=== PATIENT | female | born 1960 ===

== ENCOUNTER 2017-01-28 00:46 | Observation (INO) ==
[2017-01-28] MEDS ORDERED: ONDANSETRON 4 MG/2 ML VIAL IV STA (02:10)
[2017-01-28] MEDS ORDERED: HYDROmorphone 2 MG/1 ML VIAL IV STA (02:10)
--- NOTE | 2017-01-28 02:10 | Emergency Department Note ---
Dave Bravo Hilary, am scribing for, and in the presence of, Ana Mccrary DO 02: 04. IHermann Debra, DO, personally performed the services described in this documentation, ascribed by Jacquelin Acosta in my presence, and it is both accurate and complete . Arrival - Arrival Chief Complaint: Non-Specific Stated Complaint: pain in right back and arm , hand numbness ED Nursing Triage Note: patient to triage with c/o right arm pain and right upper back pain with tingling to right arm that started this evening. patient states she thinks it is indigestion because she ate pizza earlier. denies N/V and SOB. ekg done in triage r/t risk factors and s/s. Mode of Arrival: Ambulatory Limitations: No Limitations Source: Patient, RN Notes Reviewed Time Seen by Provider: 01/28/17 01:39 - History of Present Illness HPI Narrative: Pt is a 56 y/o female presenting to the ED with a c/o right upper back pain that radiates down her arm which onset this evening. Patients states that she "slept wrong" on it last night and believes that she is having indigestion from the pizza she ate today. She reports that it hurts when she breaths deeply. No other complaints or problems stated in the ED. Onset (ago): hour(s) Date of Last Menstrual Period: menopause Allergies/Adverse Reactions: Allergies Allergy/AdvReac Type Severity Reaction Status Date / Time No Known Allergies Allergy Unverified 01/28/17 00:57 Home Medications: Home Medications Medication Instructions Recorded Confirmed Type Unable To Obtain [Unable to Obtain] 01/28/17 01/28/17 History Review of System - Review of System 12 point system: reviewed and no additional remarkable complaints except as stated - Review of System Constitutional: Absent: fever Cardiovascular: Present: chest pain (right side), dyspnea on exertion Gastrointestinal: Absent: abdominal pain, nausea, vomiting Musculoskeletal: Present: arm pain (rt arm pain/tingling), back pain Medical,Surgical,& Family Hx - Medical History Cardio: History of: Hypertension Gastrointestinal: History of: GERD - Social History Smoking Status: Never smoker Frequency of Alcohol Use: None Type of Drug Use: None Exam Vital Signs: Vital Signs Temperature 97.9 F 01/28/17 00:49 Pulse Rate 77 01/28/17 00:49 Respiratory Rate 20 01/28/17 00:49 Blood Pressure 127/79 01/28/17 00:49 O2 Sat by Pulse Oximetry 97 01/28/17 00:49 - General General appearance: alert, in no apparent distress - Head Head exam: Present: atraumatic, normocephalic - Eye Eye exam: Present: normal appearance, PERRL, EOMI - ENT ENT exam: Present: mucous membranes moist, TM's normal bilaterally. Absent: mucous membranes dry - Neck Neck exam: Present: full ROM, trachea midline. Absent: tenderness - Chest Chest inspection: Present: symmetric chest wall rise. Absent: tenderness - Respiratory Respiratory exam: Present: normal lung sounds bilaterally. Absent: respiratory distress - Cardiovascular Cardiovascular exam: Present: regular rate, normal rhythm, normal heart sounds. Absent: murmur, rubs, gallop - Abdominal Exam Abdominal exam: Present: soft. Absent: distention, tenderness - Extremities Exam Extremities exam: Present: full ROM, tenderness (Rt arm pain). Absent: pedal edema, calf tenderness - Back Exam Back exam: Present: full ROM, tenderness (right back tenderness) - Neurological Exam Neurological exam: Present: alert, oriented X3, CN II-XII intact. Absent: motor sensory deficit - Psychiatric Psychiatric exam: Present: normal affect, normal mood - Skin Skin exam: Present: warm, dry, intact, normal color. Absent: rash Results - Labs CBC & BMP: 01/28/17 01:56 01/28/17 01:56 Lab Results: I have reviewed the patients labs Labs: Laboratory Tests 01/28/17 01:56 WBC 8.4 RBC 4.80 Hgb 13.1 Hct 39.6 MCV 82.5 L - EKG EKG results: interpreted by ERMD - Impressions nonspecific st changes - Diagnostic Findings Procedure: Chest x-ray: image reviewed by me (neg chest)
[2017-01-28 02:26] LABS: Basophils % 0.2 % (0.0-0.8); Eosinophils % 0.1 % (0.00-10.9); Hematocrit 39.6 VOL% (35.7-47.0); Hemoglobin 13.1 GM/DL (12.0-16.0); Immature Granulocytes % 0.4 %; Immature Granulocytes Absolute 0.03 #; Lymphocytes # 2.8 10*3/uL (1.4-4.0); Lymphocytes % 33.5 % (21.3-54.2); Mean Corpuscular HGB Conc 33.1 GM/DL (32-36); Mean Corpuscular Hemoglobin 27 PG (27-34); Mean Corpuscular Volume 82.5 FL (87-102); Mean Platelet Volume 10.3 FL (9.6-12.0); Monocytes # 0.8 10*3/uL (0.11-0.8); Monocytes % 9.4 % (1.7-12.7); Neutrophils # 4.7 10*3/uL (1.4-7.4); Neutrophils % 56.4 % (38.7-73.9); Platelet Count 351 T/CUMM (130-400); White Blood Count 8.4 T/CUMM (4-12)
[2017-01-28 02:40] LABS: Alanine Aminotransferase 20 U/L (13-56); Albumin 4.1 G/DL (3.4-5.0); Alkaline Phosphatase 91 U/L (45-117); Aspartate Amino Transferase 15 U/L (0-37); Blood Urea Nitrogen 15 MG/DL (7-18); Calcium 9.3 MG/DL (8.5-10.1); Glucose 121 MG/DL (74-106); Osmolality,Calculated 282.3 MOS/KG (273-304); Potassium 4.4 MMOL/L (3.5-5.1); Sodium 141 MMOL/L (136-145); Total Protein 7.7 G/DL (6.4-8.3)
[2017-01-28] MEDS ORDERED: ONDANSETRON 4 MG/2 ML VIAL ONE ×2 (02:41→11:33)
[2017-01-28] MEDS ORDERED: HYDROmorphone 2 MG/1 ML VIAL ONE (02:42)
[2017-01-28 02:45] LABS: Troponin I Only 0.054 NG/ML (0.00-0.045)
--- NOTE | 2017-01-28 03:49 | Hospitalist History & Physical ---
Assessment and Plan (1) Atypical chest pain Status: Acute Current Visit: Yes (2) Hypertension Status: Acute Current Visit: Yes (3) History of esophageal reflux Status: Acute Assessment and plan: Our plan for this patient will be admitting her to telemetry. We will also consult cardiology and draw serial cardiac enzymes. Continue home meds as appropriate and provide DVT in GI prophylaxis. Current Visit: Yes History of Present Illness Chief complaint: Chest pain History of present illness: Ms. Real is a 56 year old female with past medical history significant for hypertension and reflux who was in her normal state of health for the past couple days. Patient says that she slept wrong Tuesday night and woke up with a cramp in her neck. It never went away. She started developing a pain on the right side of her chest that was a sore sensation that radiated down her right arm and to her back. She could really relate a history of shortness of breath with it but did relate that the pain increases when she breathes. She denied nausea and vomiting and shortness of. Patient had a mild bump in her troponins and I was consulted to admit her to the emergency room. Home Medications Medication Instructions Recorded Confirmed Type Unable To Obtain [Unable to Obtain] 01/28/17 01/28/17 History Allergies Allergy/AdvReac Type Severity Reaction Status Date / Time No Known Allergies Allergy Unverified 01/28/17 00:57 Medical,Surgical,& Family Hx - Medical History Cardio: History of: Hypertension Gastrointestinal: History of: GERD - Surgical History HEENT Surgeries: Surgical HX of: Tonsilectomy & Adenoidectomy - Family History Family History: Reports;: Family Cancer, Family Heart Disease - Social History Smoking Status: Never smoker Frequency of Alcohol Use: None Type of Drug Use: None 12 point system: reviewed and no additional remarkable complaints except as stated Exam - Constitutional Vitals: Period Temp Pulse Resp BP Sys/Pham Pulse Ox Last 24 Hr 97.9 F-97.9 F 77-77 20-20 127-127/79-79 97 - General General appearance: alert, in no apparent distress - Head Head exam: Present: atraumatic, normocephalic - Eye Eye exam: Present: normal appearance, PERRL, EOMI - ENT ENT exam: Present: mucous membranes moist, TM's normal bilaterally. - Neck Neck exam: Present: full ROM, trachea midline. - Chest Chest inspection: Present: symmetric chest wall rise. - Respiratory Respiratory exam: Present: normal lung sounds bilaterally. - Cardiovascular Cardiovascular exam: Present: regular rate, normal rhythm, normal heart sounds - Abdominal Exam Abdominal exam: Present: soft. Absent: distention, tenderness - Extremities Exam Extremities exam: Present: full ROM, tenderness - Back Exam Back exam: Present: full ROM, tenderness (right back tenderness) - Neurological Exam Neurological exam: Present: alert, oriented X3, CN II-XII intact. - Psychiatric Psychiatric exam: Present: normal affect, normal mood - Skin Skin exam: Present: warm, dry, intact, normal color. Absent: rash Results - Labs CBC & BMP: 01/28/17 01:56 01/28/17 01:56
[2017-01-28] MEDS ORDERED: ONDANSETRON 4 MG/2 ML VIAL IV PRN (03:55)
[2017-01-28] MEDS ORDERED: ENOXAPARIN 40 MG/0.4 ML SYRINGE SUBCUT SCH (04:00)
[2017-01-28 04:29] LABS: Risk Ratio 2.63; VLDL CHOLESTEROL 30.2 MG/DL
[2017-01-28] MEDS ORDERED: ASPIRIN 325 MG TABLET ONE ×2 (05:20→11:33)
[2017-01-28] MEDS ORDERED: NITROGLYCERIN 2% OINT 1 INCH/GM PACK TOP ONE ×2 (05:20→11:33)
[2017-01-28] MEDS ORDERED: ENOXAPARIN 40 MG/0.4 ML SYRINGE ONE (05:20)
[2017-01-28] MEDS ORDERED: ASPIRIN EC 325 MG TABLET PO STA (05:34)
--- NOTE | 2017-01-28 06:54 | EKG Report ---
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
--- NOTE | 2017-01-28 06:55 | EKG Report ---
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
--- NOTE | 2017-01-28 07:02 | XRay Report ---
XR chest 1V portable Indication: Shortness of breath Comparison: None available Findings: The heart and mediastinum are normal in size and configuration. The pulmonary vascularity is normal in caliber. No lung infiltrates, effusions, pneumothorax or other abnormality is demonstrated. Impression: Normal chest x-ray PROCEDURE INTERPRETED AT [facility] [place] DEPARTMENT OF RADIOLOGY Final Report Signed by: Dr. Levar Patton
--- NOTE | 2017-01-28 08:23 | Ultrasound Report ---
Referring Physician: Karthikeyan Jhaveri MD Exam: US gallbladder Date: January 28, 2017 Reason: Right upper quadrant abdominal pain Comparison: None Technique: Grayscale ultrasound images of the abdomen were obtained. Ultrasound images were captured and stored. Findings: The liver measures 18.6 cm in length. There is mild diffuse increased echogenicity of the liver parenchyma, suggesting mild hepatic steatosis. No suspicious hepatic lesion is identified. No gallstones are seen. No abnormal gallbladder wall thickening or pericholecystic fluid is identified. The common bile duct is normal in size, measuring 0.4 cm in diameter. The visualized pancreas is unremarkable, but it is partially obscured by bowel gas. The right kidney measures 10.4 x 5.2 x 4.5 cm. No right hydronephrosis or suspicious renal lesion is identified. The visualized IVC appears patent. No ascites is seen. Impression: 1. There is no sonographic evidence of cholelithiasis or acute cholecystitis. 2. Mild hepatic steatosis. PROCEDURE INTERPRETED AT [facility] DEPARTMENT OF RADIOLOGY Final Report Signed by: Dr. Celia Medeiros
[2017-01-28] MEDS ORDERED: ASPIRIN EC 325 MG TABLET PO SCH (09:00)
--- NOTE | 2017-01-28 10:59 | Cardiology Consult Note ---
<Sujey Rios E - Last Filed: 01/28/17 11:02> Assessment and Plan - Time spent with patient Time spent with patient: Greater than 30 minutes (1) Neck pain on right side Status: Acute Assessment and plan: SEE PLAN OF CARE LISTED BELOW Current Visit: Yes (2) Shoulder pain, right Status: Acute Assessment and plan: SEE PLAN OF CARE LISTED BELOW Current Visit: Yes (3) Morbid obesity Status: Chronic Assessment and plan: SEE PLAN OF CARE LISTED BELOW Current Visit: Yes (4) Sleep disorder Status: Chronic Assessment and plan: SEE PLAN OF CARE LISTED BELOW Current Visit: Yes (5) Hypertension Status: Chronic Assessment and plan: SEE PLAN OF CARE LISTED BELOW Current Visit: Yes History of Present Illness - Data of Consult Patient: new to practice Consult date: 01/28/17 Requesting Physician: Jermain Presley - Consult Narrative Reason for consult: right neck pain, shoulder pain. 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 Ms. Real is a 56 year old female without a prior cardiac history. Risk factors include; hypertension, obesity and sedentary lifestyle. Suspect ANNE. Patient presented to the ER of [facility] during the night due to severe, excruiating right neck, shoulder pain. Tuesday night she feels as if she slept "wrong" and woke with a "bad cramp" in her right neck. This has caused significant pain and worse when attempting to turn her head. Last night, it involved her right shoulder and her fingers were numb. Moving her right shoulder above her head improves the discomfort. She has an exquisitely tight right sternocleomastoid muscle. Cardiology was consulted to rule out a cardiac source as her troponin was initially 0.03. The enzymes have remained negative. EKG unremarkable. She denies chest pain, heaviness or tightness. She does not exercise routinely and acknowledges she has moderate GAYLE. She acknowledges she snores loudly, holds her breathe while sleeping. Mallampati Airway Class III with neck circumference greater than 44cm. She will consider outpatient sleep study in her future. Patient is NPO for stress testing this morning. Should she receive favorable results from stress testing, I would certainly treat her neck and shoulder pain accordingly. Recommend: Neurontine 100mg orally TID for one week. Tramadol 50mg orally BID for one week. Acetaminophen 500mg orally BID for one week. Will defer to attending for these prescriptions. I did order right shoulder xray and c-spine to evaluate this pain. Will await results of stress testing and advise accordingly. ASSESSMENT/PLAN: 1. RIGHT NECK/SHOULDER PAIN - see plan of care listed above. 2. HYPERTENSION - Continue current treatment 3. SUSPECTED SLEEP APNEA - will discuss with her PCP 4. MORBID OBESITY - the merits of weight loss was thoroughly discussed for greater than 5 minutes CC: - Home Medications and Allergies Home Medications: Home Medications Medication Instructions Recorded Confirmed Type Unable To Obtain [Unable to Obtain] 01/28/17 01/28/17 History Allergies/Adverse Reactions: Allergies Allergy/AdvReac Type Severity Reaction Status Date / Time No Known Allergies Allergy Unverified 01/28/17 00:57 - Constitutional Constitutional: Absent: anorexia, fatigue - EENT Nose, mouth and throat: Absent: dysphagia, epistaxis - Cardiovascular Cardiovascular: Present: dyspnea on exertion, radiating jaw, neck or arm pain. Absent: chest pain at rest, chest pain with activity, edema, lightheadedness, palpitations - Respiratory Respiratory: Present: dyspnea on exertion, snoring - Gastrointestinal Gastrointestinal: Absent: abdominal pain, bloating, dysphagia - Genitourinary Genitourinary: Absent: dysuria, hematuria - Musculoskeletal Musculoskeletal: Absent: back pain, joint swelling - Neurological Neurological: Absent: abnormal gait, abnormal speech - Psychiatric Psychiatric: Absent: anxiety, auditory hallucinations - Endocrine Endocrine: Absent: cold intolerance, fatigue - Hematologic/Lymphatic Hematologic/Lymphatic: Absent: easy bleeding, easy bruising, lymphadenopathy Medical,Surgical,& Family Hx - Medical History Cardio: History of: Hypertension No history of: CAD, [place] Gastrointestinal: History of: GERD - Surgical History HEENT Surgeries: Surgical HX of: Tonsilectomy & Adenoidectomy - Family History Family History: Reports;: Family Cancer, Family Heart Disease - Social History Smoking Status: Never smoker Have you smoked in the last 12 months: No Frequency of Alcohol Use: None Type of Drug Use: None Functional capacity: independent ambulation Physical Examination Vital Signs Temp Pulse Resp BP Pulse Ox 97.9 F 77 20 127/79 97 01/28/17 00:49 01/28/17 00:49 01/28/17 00:49 01/28/17 00:49 01/28/17 00:49 General: Present: Appears Well, No Apparent Distress HEENT: Present: PERRL, Normocephaly Neck: Present: Supple Neck, No JVD/HJR (Difficult to assess due to habitus), Other (limited ROM ). Absent: No Masses, Bruit Cardiac: Present: Regular Rate, Regular Rhythm, No Murmur Lungs: Present: Clear Ascult./Percussion. Absent: Wheezes, Oxygen Neuro: Present: Cranial Nerve 2-12 Intact, Tingling (right fingers) Abdomen: Present: Soft, Active Bowel Sounds Skin: Absent: Rash, Suspicious Lesions Musculoskeletal: Absent: Pain in Joint, No Fluid Collection Gait: Present: Normal Gait Extremities: Present: Normal Upper Extr. Pulses, Normal Lower Extr. Pulses. Absent: No Edema, Edema Result/EKG - Labs CBC & BMP: 01/28/17 01:56 01/28/17 01:56 Lab Results: I have reviewed the past 24 hour labs Labs: Laboratory Results - last 24 hr 01/28/17 01/28/17 01/28/17 01:56 01:56 01:56 WBC 8.4 RBC 4.80 Hgb 13.1 Hct 39.6 MCV 82.5 L MCH 27 MCHC 33.1 RDW 15.0 Plt Count 351 MPV 10.3 Neut % (Auto) 56.4 Lymph % (Auto) 33.5 Cass % (Auto) 9.4 Eos % (Auto) 0.1 Baso % (Auto) 0.2 Neut # (Auto) 4.7 Lymph # (Auto) 2.8 Cass # (Auto) 0.8 Eos # (Auto) 0.0 Baso # (Auto) 0.0 Immature Gran % 0.4 Nucleated RBC % 0.0 Immature Gran # 0.03 Nucleated RBCs # 0.00 Sodium 141 Potassium 4.4 Chloride 103 Carbon Dioxide 26 Anion Gap 16.4 H BUN 15 Creatinine 0.90 GFR Calculation 94 BUN/Creatinine Ratio 16.00 Glucose 121 H Calculated Osmolality 282.3 Calcium 9.3 Total Bilirubin 0.40 AST 15 ALT 20 Alkaline Phosphatase 91 Total Creatine Kinase 110 CK-MB (CK-2) < 1.0 Troponin I 0.054 H B-Natriuretic Peptide < 2 L Total Protein 7.7 Albumin 4.1 Globulin 3.6 H Albumin/Globulin Ratio 1.1 Triglycerides Cholesterol LDL Cholesterol VLDL Cholesterol HDL Cholesterol Heart Disease Risk Ratio 01/28/17 01/28/17 04:00 05:50 WBC RBC Hgb Hct MCV MCH MCHC RDW Plt Count MPV Neut % (Auto) Lymph % (Auto) Cass % (Auto) Eos % (Auto) Baso % (Auto) Neut # (Auto) Lymph # (Auto) Cass # (Auto) Eos # (Auto) Baso # (Auto) Immature Gran % Nucleated RBC % Immature Gran # Nucleated RBCs # Sodium Potassium Chloride Carbon Dioxide Anion Gap BUN Creatinine GFR Calculation BUN/Creatinine Ratio Glucose Calculated Osmolality Calcium Total Bilirubin AST ALT Alkaline Phosphatase Total Creatine Kinase CK-MB (CK-2) Troponin I 0.029 B-Natriuretic Peptide Total Protein Albumin Globulin Albumin/Globulin Ratio Triglycerides 151 H Cholesterol 105 LDL Cholesterol 53.0 VLDL Cholesterol 30.2 HDL Cholesterol 40 Heart Disease Risk Ratio 2.63 - Diagnostic Findings Procedure: Chest x-ray: report reviewed by oh - EKG EKG results: interpreted by oh EKG shows: sinus rhythm <Jaron Lewis - Last Filed: 01/28/17 14:37> History of Present Illness - Consult Narrative History of present illness: Cardiology addendum. Patient examined and chart reviewed. Atypical chest pain. Has neck and shoulder pain. EKG shows ST-T wave changes only. Negative troponin. Normal cardiac exam. Plan Exercise cardiac stress test Outpatient sleep study recommended CC: Jermain Presley MD Physical Examination Vital Signs Temp Pulse Resp BP Pulse Ox 97.9 F 77 20 127/79 97 01/28/17 00:49 01/28/17 00:49 01/28/17 00:49 01/28/17 00:49 01/28/17 00:49 Result/EKG - Labs CBC & BMP: 01/28/17 01:56 01/28/17 01:56 Labs: Laboratory Results - last 24 hr 01/28/17 01/28/17 01/28/17 04:00 05:50 11:37 Troponin I 0.029 0.024 Triglycerides 151 H Cholesterol 105 LDL Cholesterol 53.0 VLDL Cholesterol 30.2 HDL Cholesterol 40 Heart Disease Risk Ratio 2.63
--- NOTE | 2017-01-28 11:19 | Event Note ---
Underwent nuclear stress testing without complaints of chest pain, heaviness or tightness. Moderate GAYLE noted. Initially, inferior leads were abnormal, but after adjustment to leads, changes resolved. No other significant ST changes noted. No arrythmia noted. Poor exercise tolerance. Now to nuclear medicine for completion of final scan. Dr. Lewis to read, interpret and advise.
[2017-01-28] MEDS: NITROGLYCERIN 2% OINT 1 INCH/GM PACK TOP SCH ×2 (11:43→16:32)
--- NOTE | 2017-01-28 12:05 | XRay Report ---
XR shoulder 2V RT Indication: Shoulder pain Comparison: None available Findings: No evidence of fracture seen. The alignment of the joints appears normal. Mild acromioclavicular joint degenerative change is present. No soft tissue abnormality is seen. Impression: Mild shoulder osteoarthrosis. PROCEDURE INTERPRETED AT [facility] DEPARTMENT OF RADIOLOGY Final Report Signed by: Dr. Levar Patton
--- NOTE | 2017-01-28 12:06 | XRay Report ---
XR cervical spine AP/LAT Indication: Cervicalgia Comparison: None available Findings: No fracture is seen. Vertebral body heights and alignment are normal. The disc space heights are well-maintained. No significant degenerative change is present. Impression: No evidence of abnormality demonstrated PROCEDURE INTERPRETED AT [facility] DEPARTMENT OF RADIOLOGY Final Report Signed by: Dr. Levar Patton
--- NOTE | 2017-01-28 12:25 | EKG Report ---
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
--- NOTE | 2017-01-28 14:42 | Hospitalist Progress Note ---
Hospitalist: Subjective Interval history: I saw and examed pt this am. Still has right neck and right shoulder pain. Cardiology consulted due to eleveted troponin level. Stress test order per Cards today. Start neurontin and tylenol and consult PT for neck and r shoulder pain. Reeval in am. No charge for this visit note. Exam - Constitutional Vitals: Period Temp Pulse Resp BP Sys/Pham Pulse Ox Last 24 Hr 56-72 18-18 119-177/83-88 98-100 Results - Labs CBC & BMP: 01/28/17 01:56 01/28/17 01:56
[2017-01-28] MEDS ORDERED: GABAPENTIN 100 MG CAPSULE PO SCH (15:00)
--- NOTE | 2017-01-28 15:23 | Discharge Summary ---
<Ede Gallardo - Last Filed: 01/28/17 15:15> Hospital Course - Hospital Course Hospital Course: Ms. Real is a 56-year-old female who presented to the ED this morning with complaints of chest pain, cramping in her neck that radiates down to her right shoulder. On admission, patient had a mild elevation in her troponins and she was admitted for observation. Cardiology was consulted and the patient underwent a stress test which came back negative. Shoulder x-ray revealed mild right shoulder osteoarthritis. Cervical spine x-ray was negative for any fractures. Gallbladder ultrasound revealed no sonographic evidence of cholelithiasis or acute cholecystitis. At this time patient has reached maximum benefit from hospitalization and is stable for discharge. We suspect her pain is musculoskeletal in origin and she has been prescribed Tylenol, gabapentin and tramadol for pain management. She should follow-up with her PCP , Yesi Boles NP, in [place] for further management. The patient also admits to periods of apnea, snoring and possible morning fatigue. It is advisable that she undergoes a sleep study to further evaluate the possibility of sleep apnea. She has agreed to have this done in [place]. She will be discharged home today. - Time spent with patient Time with patient DS: Greater than 30 minutes Diagnosis - Discharge Diagnosis (1) Atypical chest pain Status: Acute (2) Hypertension Status: Chronic (3) Neck pain on right side Status: Acute (4) Shoulder pain, right Status: Acute (5) Sleep disorder Status: Chronic Discharge Plan - Discharge Data Disposition: Disch To Home/Self Care Condition at Discharge: Stable Discharge Diet: advance to your usual diet Activity: resume usual activities as tolerated Hygiene: no restrictions Weight Bearing at Discharge: full weight bearing Driving: no restrictions Contact your physician if you experience:: Shortness of breath, pain uncontrolled by pain medications - Discharge Medications New Aspirin EC Tab 325 mg PO DAILY #30 tablet Gabapentin Cap/Tab [Neurontin Cap/Tab] 100 mg PO TID #30 capsule Acetaminophen Tab [Tylenol Tab] 650 mg PO BID #60 tablet Continue Hydrocodone Bit/Homatrop Me-Br [Hydrocodone-Homatropine Syrup] 5 ml PO QID PRN PRN Reason: Cough Spironolactone 100 mg PO BID Omeprazole 40 mg PO DAILY dilTIAZem HCl [Diltiazem 24Hr ER] 300 mg PO DAILY Clobetasol Propionate/Emoll [Clobetasol 0.05% Emollient Foam] 1 applic TOP DAILY PRN PRN Reason: Itching Discontinued Doxycycline Hyclate [Doxycycline Hyclate] 50 mg PO DAILY - Follow Up or Referral - Forms/Instructions Exam - Constitutional Vitals: Period Temp Pulse Resp BP Sys/Pham Pulse Ox Last 24 Hr 97.2 F-97.9 F 56-72 18-18 119-177/72-88 98-100 Exam: General appearance: obese, no acute distress - Head Head exam: Present: normocephalic, atraumatic - Eye Eye exam: Present: EOMI. Absent: conjunctival injection, nystagmus Pupils: Present: KAILA, normal accommodation - ENT ENT exam: Present: normal exam, normal external ear exam - Neck Neck exam: Present: normal inspection. Absent: lymphadenopathy, tenderness, thyromegaly - Respiratory Respiratory exam: Present: clear to auscultation bilaterally. Absent: rales, rhonchi, wheezes - Cardiovascular Cardiovascular exam: Present: regular rate and rhythm. Absent: carotid bruit, gallop, rubs - GI/Abdominal GI/Abdominal exam: Present: normal bowel sounds. Absent: ascites, distended, mass - Extremities Exam Extremities exam: Present: normal inspection, normal capillary refill. Absent: edema - Back Exam Back exam: Absent: CVA tenderness (L), CVA tenderness (R) - Neurological Exam Neurological exam: Present: alert, oriented X3 - Psychiatric Psychiatric exam: Present: normal affect, normal mood - Skin Skin exam: Present: normal color, warm, dry Discharge Results Procedures and tests throughout hospitalization: Pending Orders 01/28/17 09:05 NM pham perf SPECT rest or str Routine Labs on day of discharge: Labs from last 24 hours 01/28/17 01/28/17 01/28/17 11:37 05:50 04:00 Troponin I 0.024 0.029 Triglycerides 151 H Cholesterol 105 LDL Cholesterol 53.0 VLDL Cholesterol 30.2 HDL Cholesterol 40 Heart Disease Risk Ratio 2.63 DS: Provider Date of admission: 01/28/17 03:55 Primary care physician: . No PCP HESHAM Hernandez Attending physician on admission: Jermain Presley MD Consults: 01/28/17 14:38 Consult to Physical Therapy [CONS] Routine Reason for Physical Therapy: Other Weakness Discharging clinician: Ede LOPEZ Expected date of discharge: 01/28/17 <Karthikeyan Jhaveri - Last Filed: 01/28/17 16:04> Hospital Course - Hospital Course Hospital Course: I saw and examed pt today at her room. I agree with history, physical, assessment, and plan listed as above by our PA. Repeated 2 sets of troponin and both were WNL. Cardiology consulted. Stress test done and result is nonremarkable per Cards. Stable to be dc home with pain management with tylenol and neurontin due to neck /R shoulder pain. Has sleep apnea, pt agrees to f/u with PCP for further work up. Pt's condition improved and stable to be dc home today. F/u with PCP at [place], [place]. - Time spent with patient Time with patient DS: Less than 30 minutes Diagnosis - Discharge Diagnosis (1) Atypical chest pain Status: Acute (2) History of esophageal reflux Status: Acute (3) Neck pain on right side Status: Acute (4) Shoulder pain, right Status: Acute (5) Hypertension Status: Chronic (6) Morbid obesity Status: Chronic (7) Sleep disorder Status: Chronic
[2017-01-28 15:45] VITALS: BP 149/84
--- NOTE | 2017-01-28 19:26 | Nuclear Medicine Report ---
EXERCISE CARDIOLITE GATED SPECT PERFUSION STUDY. REFERRING PHYSICIAN: Ana Mccrary MD PROCEDURE: EXERCISE CARDIOLITE GATED SPECT PERFUSION STUDY. INITIAL IMPRESSION: 1. A 56-YEAR-OLD WITH ATYPICAL CHEST PAIN. 2. ABNORMAL EKG. FINAL IMPRESSION: NORMAL EXERCISE CARDIOLITE GATED SPECT. I. DESCRIPTION OF PROCEDURE: The patient received 10.0 mCi of Technetium-99m Cardiolite IV and res t imaging was obtained in the routine manner 20 minutes later. The patient then walked for 5 minute s 1 second on standard [facility] protocol and achieved a peak heart rate of 142, which is 87% of her pre dicated maximal heart rate. At peak exercise, 30.0 mCi of Technetium-99m Cardiolite IV was injected and stress imaging was obtained in the routine manner 20 minutes later. Serial electrocardiograms were performed. Initial blood pressure 138/76 and it was 148/82 immediate post exercise. II. RESULTS: The patient had no chest pain or arrhythmias, and the test was terminated due to shor tness of breath and fatigue. The resting EKG demonstrates normal sinus rhythm with poor R-wave prog ression across the precordium and ST-T wave changes. With exercise, no diagnostic EKG changes occur red. Rare PVCs were noted. Tomographic imaging demonstrates homogeneous uptake of radioisotope in all segments. There is no ev idence for ischemia or scar. Gated SPECT imaging demonstrates normal wall motion and thickening in all segments. The calculated ejection fraction is 63%. III. FINAL IMPRESSION: 1. CLINICALLY AND ELECTROCARDIOGRAPHICALLY NEGATIVE. 2. SCINTIGRAPHICALLY NORMAL PERFUSION STUDY. IV. DISPOSITION: The patient should be reassured regarding the lack of any evidence for significa nt coronary artery disease at this time. She had no chest pain or diagnostic EKG changes, and tomog raphic imaging is normal. In addition, ventricular function is well preserved with an ejection frac tion of 63%. This is a low-risk scan. Continued medical therapy and risk-factor modification recom mended. Procedure performed and interpreted at [facility] Department of Radiology.
[2017-01-28] MEDS ORDERED: ACETAMINOPHEN 325 MG TABLET PO SCH (21:00)
[2017-01-28] MEDS ORDERED: SPIRONOLACTONE 50 MG TABLET PO SCH (21:00)
[2017-01-29] MEDS ORDERED: DILTIAZEM CD 300 MG CAPSULE PO SCH (09:00)
== END 2017-01-28 17:05 | disposition home or self-care (01) ==
LOC: N.ED 00:46 → N.EDINP 00:46 → SUATTDRO 03:55 → N.EDINP 13:15 → N.TELES 13:57
PROVIDERS: ADMIT Internal Medicine; ATTEND Internal Medicine